=== PATIENT | male | born 1995 | race Caucasian/White ===

== ENCOUNTER 2017-07-08 20:10 | Emergency (ER) | payer SELFPAY ==
[~2017-07-08] VITALS: Ht 175.3 cm; Wt 159.0 kg
[~2017-07-08 20:10] MED LIST: NOCURR
[2017-07-08] MEDS ORDERED: KETOROLAC TROMETHAMINE 60 MG/2 ML VIAL IM ONE (21:30)
[2017-07-08] MEDS ORDERED: METHOCARBAMOL 500 MG TABLET PO ONE (22:00)
[2017-07-08 22:17] VITALS: BP 148/77
== END 2017-07-08 22:20 | disposition home or self-care (01) ==
LOC: EMS 21:33
DX: S33.5XXA Sprain of ligaments of lumbar spine, initial encounter (principal); X50.9XXA Other and unspecified overexertion or strenuous movements or postures, initial encounter; Y93.89 Activity, other specified; Y92.89 Other specified places as the place of occurrence of the external cause; Y99.8 Other external cause status
CPT/HCPCS: 96372; 99283; J1885